=== PATIENT | female | born 1935 | race Caucasian/White ===

== ENCOUNTER 2019-09-18 17:52 | Emergency (ER) | payer MEDICARE, MEDICAID ==
[~2019-09-18] VITALS: Ht 160 cm; Wt 65.0 kg
[~2019-09-18 17:52] MED LIST: ACET-1 PO; ALBU8.5H8 INH; ASPI-611 PO; ATOR-2 PO; CHOL10002 PO; CLOP75TA15 PO; DEXL60CA3 PO; GABA600T13 PO; LEVO50TA PO; LIOT5TAB10 PO; LOSA25TA41 PO; LUBI8CAP PO; METF-436 PO; METO25TA6 PO; NITR0.4T SL; SERT25TA PO
[2019-09-18] MEDS ORDERED: HYDROcodone/acetaminophen 5mg/325mg tablet PO ONE (18:55)
[2019-09-18] MEDS ORDERED: ondansetron 4mg rapidly disintigrating tab PO ONE (18:55)
[2019-09-18 19:00] LABS: CLARITY,URINE CLEAR (Clear); COLOR,URINE YELLOW (Yellow); GLUCOSE, URINE NEGATIVE (Neg); KETONES,URINE NEGATIVE (Neg); LEUKOCYTE ESTERASE ,URINE NEGATIVE (Neg); NITRITES, URINE NEGATIVE (Neg); OCCULT BLOOD,URINE LARGE (Neg); PH,URINE 5.5 (4.8-8.0); PROTEIN,URINE NEGATIVE (Neg); UROBILINOGEN,URINE 0.2 E.U/dL (0.2-1.0)
[2019-09-18 19:06] LABS: UA COLLECTION TYPE CLN CATCH MIDSTREAM
[2019-09-18 19:07] LABS: BACTERIA,URINE FEW /HPF (Neg); SQUAMOUS EPITHELIAL CELL,UR FEW /LPF (FEW); WBC,URINE NONE SEEN /HPF (0-4)
[2019-09-18 19:49] LABS: BASOPHILS # (AUTO) 0.1 X10'3 (0-0.2); BASOPHILS % (AUTO) 1.1 % (0-1); EOSINOPHILS # (AUTO) 0.1 X10'3 (0-0.9); EOSINOPHILS % (AUTO) 1.3 % (0-6); HEMATOCRIT 39.7 % (35.0-45.0); HEMOGLOBIN 12.9 g/dl (12.0-16.0); LYMPHOCYTES # (AUTO) 1.3 X10'3 (1.1-4.8); LYMPHOCYTES % (AUTO) 19.9 % (21-51); MEAN CORPUSCULAR HGB CONC 32.6 g/dL (33.0-36.5); MEAN CORPUSCULAR VOLUME 92.1 FL (78-98); MEAN PLATELET VOLUME 9.7 FL (7.4-10.4); MONOCYTES # (AUTO) 0.4 X10'3 (0-0.9); MONOCYTES % (AUTO) 6.4 % (2-12); NEUTROPHILS # (AUTO) 4.8 X10'3 (1.8-7.7); NEUTROPHILS % (AUTO) 71.3 % (42-75); PLATELET COUNT 240 X10'3 (140-440); RED BLOOD COUNT 4.31 X10'6 (4.20-5.60); RED CELL DISTRIBUTION WIDTH 15.3 % (11.5-14.5); WHITE BLOOD COUNT 6.7 X10'3 (4.5-11.0)
[2019-09-18 20:05] LABS: ALANINE AMINOTRANSFERASE 20 U/L (12-78); ALBUMIN 3.6 G/DL (3.4-5.0); ALBUMIN/GLOBULIN RATIO 0.9 (1.1-1.5); ALKALINE PHOSPHATASE 95 IU/L (46-116); ANION GAP 7 (8-16); ASPARTATE AMINO TRANSFERASE 18 U/L (10-37); BLOOD UREA NITROGEN 15 MG/DL (7-18); BUN/CREATININE RATIO 16.9 (6.6-38.0); CALCIUM 9.2 MG/DL (8.5-10.1); CHLORIDE 106 MMOL/L (99-107); CREATININE 0.89 MG/DL (0.40-0.90); GLUCOSE 101 MG/DL (70-104); LIPASE 99 U/L (73-393); SODIUM 142 MMOL/L (135-145); TOTAL CARBON DIOXIDE 28.8 MMOL/L (24-32); TOTAL PROTEIN 7.5 G/DL (6.4-8.2); eGFR 61 ML/MIN
--- NOTE | 2019-09-18 20:08 | NUR ---
BETH NORIEGA CALL FOR [facility] OR UPDATE. [phone]
[2019-09-18] MEDS ORDERED: ketorolac trometh inj. 60 MG/2 ML VIAL IM ONE (21:10)
[2019-09-18 21:45] VITALS: BP 183/65
== END 2019-09-18 21:47 | disposition home or self-care (01) ==
LOC: ER 17:52
DX: R10.31 Right lower quadrant pain (principal); J44.9 Chronic obstructive pulmonary disease, unspecified; E11.9 Type 2 diabetes mellitus without complications; G89.29 Other chronic pain; Z90.49 Acquired absence of other specified parts of digestive tract; Z98.890 Other specified postprocedural states; Z88.8 Allergy status to other drugs, medicaments and biological substances; Z88.2 Allergy status to sulfonamides; Z79.82 Long term (current) use of aspirin; Z79.84 Long term (current) use of oral hypoglycemic drugs; Z79.899 Other long term (current) drug therapy
CPT/HCPCS: 36415; 74176; 80053; 81001; 83605; 83690; 85025; 96372; 99284; J1885

== ENCOUNTER 2021-11-16 09:56 | Day surgery (SDC) | payer MEDICARE, MEDICAID ==
[2021-11-08 14:06] LABS: BASOPHILS % (AUTO) 0.8 % (0-1); EOSINOPHILS # (AUTO) 0.1 X10'3 (0-0.9); EOSINOPHILS % (AUTO) 1.1 % (0-6); LYMPHOCYTES % (AUTO) 18.2 % (21-51); MEAN CORPUSCULAR HEMOGLOBIN 31.4 PG (27.0-31.0); MEAN CORPUSCULAR HGB CONC 33.7 g/dL (33.0-36.5); MEAN CORPUSCULAR VOLUME 93.1 FL (78-98); MEAN PLATELET VOLUME 9.4 FL (7.4-10.4); MONOCYTES # (AUTO) 0.4 X10'3 (0-0.9); MONOCYTES % (AUTO) 6.5 % (2-12); NEUTROPHILS # (AUTO) 4.2 X10'3 (1.8-7.7); NEUTROPHILS % (AUTO) 73.4 % (42-75); PRE OP HEMATOCRIT 41.1 % (35.0-45.0); PRE OP HEMOGLOBIN 13.9 g/dL (12.0-16.0); PRE OP PLATELET COUNT 185 X10'3 (140-440); RED BLOOD COUNT 4.41 X10'6 (4.20-5.60); RED CELL DISTRIBUTION WIDTH 14.6 % (11.5-14.5)
[2021-11-08 14:38] LABS: ALBUMIN 3.5 G/DL (3.4-5.0); ALKALINE PHOSPHATASE 99 IU/L (46-116); BLOOD UREA NITROGEN 24 MG/DL (7-18); BUN/CREATININE RATIO 27.6 (6.6-38.0); CALCIUM 8.9 MG/DL (8.5-10.1); CHLORIDE 108 MMOL/L (99-107); CREATININE 0.87 MG/DL (0.40-0.90); PRE OP ALT 27 U/L (30-65); PRE OP ANION GAP 10 (8-16); PRE OP AST 22 U/L (10-37); PRE OP BILIRUB, TOTAL 0.5 MG/DL (0.0-1.0); PRE OP GLUCOSE 102 MG/DL (70-104); PRE OP POTASSIUM 4.4 MMOL/L (3.4-5.1); PRE OP SODIUM 144 MMOL/L (135-145); TOTAL CARBON DIOXIDE 25.7 MMOL/L (24-32); TOTAL PROTEIN 6.9 G/DL (6.4-8.2); eGFR 62 ML/MIN
[~2021-11-16] VITALS: Ht 162.6 cm; Wt 70.0 kg
[2021-11-16] VITALS (9 sets, daily range): BP systolic 127–146; BP diastolic 57–82
[~2021-11-16 09:56] MED LIST changes: +ALBU8.5H17 INH; -ALBU8.5H8 INH; +DOCUMENT DATE & TIME OF BETA-BLOCKER PO ONE; +LOP25T PO; -METO25TA6 PO; +albuterol 2.5 MG/3 ML nebule NEB ONE; +ceFAZolin 1,000 MG in NS 50ML IVPB IV ONE; +famotidine 20mg tablet PO ONE; +ringers solution, lacted 1,000 ML IV SCH; +vancomycin 1,500 MG in NS 300ml IV soln IV ONE
[2021-11-16] MEDS ORDERED: ACET-2971 PO (10:47)
[2021-11-16] MEDS ORDERED: hydrALAZINE 20mg/ml inj. IV PRN (10:55)
[2021-11-16] MEDS ORDERED: ondansetron/PF 4mg/2ml inj IV PRN (10:55)
[2021-11-16] MEDS ORDERED: morphine 2 MG/ML inj. syringe IV PRN (10:55)
[2021-11-16] MEDS ORDERED: labetalol 20mg/4ml (5mg/ml) syringe IV PRN (10:55)
[2021-11-16] MEDS ORDERED: fentaNYL/PF 50MCG/1 ML 2ML syringe IV PRN ×2 (10:55)
[2021-11-16] MEDS ORDERED: ringers solution, lacted 1,000 ML IV SCH (10:55)
[2021-11-16] MEDS ORDERED: morphine 4 MG/ML inj SYRINge IV PRN (10:55)
[2021-11-16] MEDS ORDERED: BUPIVAcaine 0.5% inj/PF 30 ML ONE ×2 (12:32→12:38)
[2021-11-16] MEDS ORDERED: midazolam 1 mg/ML 2ml injection ONE (13:18)
[2021-11-16] MEDS ORDERED: fentaNYL/PF 50MCG/1 ML 2ML syringe ONE ×2 (13:18→14:06)
[2021-11-16] MEDS ORDERED: LIDOcaine 2% (20mg/ml) 5ml vial ONE (13:26)
[2021-11-16] MEDS ORDERED: propofol inj 20 ML IV ONE (13:26)
[2021-11-16] MEDS ORDERED: ondansetron/PF 4mg/2ml inj ONE (13:26)
[2021-11-16] MEDS ORDERED: ePHEDrine 50MG/ML INJ. ONE (13:33)
[2021-11-16] MEDS ORDERED: BUPIVAcaine 0.5% inj/PF 30 ml vial IJ ONE (13:47)
[2021-11-16] MEDS ORDERED: acetaminophen 1,000mg/100ml IV 100 ML IV ONE (13:58)
[2021-11-16] MEDS ORDERED: triamcinolone acetonide 40mg/ml inj ONE (14:01)
--- NOTE | 2021-11-16 14:41 | NUR ---
Received from OR via [facility], accompanied by Anesthesiologist Ekta and report given by Anesthesiolgist. VS WNL, 20G LR at 100cc/hr, bilateral knees wrapped with dressings CDI, bilateral distal extrem pulses palpable, no pain, mask to 10L and sats above 95%.
--- NOTE | 2021-11-16 16:01 | NUR ---
Pt discharged to vehicle by wheelchair with no incidences. IV DC'd all belongings returned to patient. She and friend verbalized understanding of all DC instructions. Dressings remain CDI. Pain meds at home per new script from .
== END 2021-11-16 16:01 | disposition home or self-care (01) ==
LOC: PAS 09:56
PROVIDERS: ATTEND Orthopaedic Surgery
DX: S83.232A Complex tear of medial meniscus, current injury, left knee, initial encounter (principal); S83.231A Complex tear of medial meniscus, current injury, right knee, initial encounter; S83.271A Complex tear of lateral meniscus, current injury, right knee, initial encounter; S83.282A Other tear of lateral meniscus, current injury, left knee, initial encounter; M17.0 Bilateral primary osteoarthritis of knee; M94.261 Chondromalacia, right knee; M94.262 Chondromalacia, left knee; F41.1 Generalized anxiety disorder; M19.011 Primary osteoarthritis, right shoulder; I10 Essential (primary) hypertension; E03.9 Hypothyroidism, unspecified; E78.5 Hyperlipidemia, unspecified; E66.8 Other obesity; Z68.25 Body mass index [BMI] 25.0-25.9, adult; M17.32 Unilateral post-traumatic osteoarthritis, left knee; M16.12 Unilateral primary osteoarthritis, left hip; E11.59 Type 2 diabetes mellitus with other circulatory complications; K21.9 Gastro-esophageal reflux disease without esophagitis; J44.9 Chronic obstructive pulmonary disease, unspecified; F17.210 Nicotine dependence, cigarettes, uncomplicated; Z79.899 Other long term (current) drug therapy; Z96.641 Presence of right artificial hip joint; Z88.8 Allergy status to other drugs, medicaments and biological substances; Z88.2 Allergy status to sulfonamides; Z20.822 Contact with and (suspected) exposure to COVID-19; X58.XXXA Exposure to other specified factors, initial encounter; Y93.89 Activity, other specified; Y92.89 Other specified places as the place of occurrence of the external cause; Y99.8 Other external cause status
CPT/HCPCS: 29873; 29879; 29880; 36415; 80053; 82948; 85025; J0131; J0690; J2250; J2405; J2704; J3010; J3301; J3370; J3490; J7040; J7120; S0020; U0003; U0005; Z7506; Z7508; Z7512; A4215; A4618; A6250; A6449; A7000

== ENCOUNTER 2022-06-25 16:31 | Emergency (ER) | payer MEDICARE, MEDICAID ==
[~2022-06-25] VITALS: Ht 157.5 cm; Wt 65.0 kg
[~2022-06-25 16:31] MED LIST changes: -ACET-1 PO; +ACET-2971 PO; -CLOP75TA15 PO; -DEXL60CA3 PO; -DOCUMENT DATE & TIME OF BETA-BLOCKER PO ONE; -GABA600T13 PO; -LIOT5TAB10 PO; -LUBI8CAP PO; -METF-436 PO; -SERT25TA PO; -albuterol 2.5 MG/3 ML nebule NEB ONE; -ceFAZolin 1,000 MG in NS 50ML IVPB IV ONE; -famotidine 20mg tablet PO ONE; -ringers solution, lacted 1,000 ML IV SCH; -vancomycin 1,500 MG in NS 300ml IV soln IV ONE
[2022-06-25] MEDS ORDERED: LIDO700A32 TOP (17:12)
[2022-06-25] MEDS ORDERED: LIDOcaine 5% patch TP STA (17:12)
[2022-06-25 17:37] VITALS: BP 128/78
--- NOTE | 2022-06-27 13:03 | NUR ---
TRAMODOL 50MG 1 PO TID PRN PAIN #12 NO REFILL CALLED TO [facility] IN [place] PER ISH RAMIREZ. MSG LEFT ON MACHINE.
== END 2022-06-25 17:41 | disposition home or self-care (01) ==
LOC: ER 16:31
DX: R07.81 Pleurodynia (principal); R06.02 Shortness of breath; E78.00 Pure hypercholesterolemia, unspecified; I10 Essential (primary) hypertension; J44.9 Chronic obstructive pulmonary disease, unspecified; E11.9 Type 2 diabetes mellitus without complications; E03.9 Hypothyroidism, unspecified; G89.29 Other chronic pain; F32.A Depression, unspecified; Z90.89 Acquired absence of other organs; Z90.49 Acquired absence of other specified parts of digestive tract; Z98.890 Other specified postprocedural states; Z88.1 Allergy status to other antibiotic agents; Z88.2 Allergy status to sulfonamides; Z88.6 Allergy status to analgesic agent; Z79.82 Long term (current) use of aspirin; Z88.8 Allergy status to other drugs, medicaments and biological substances; Z79.899 Other long term (current) drug therapy
CPT/HCPCS: 71101; 99284

== ENCOUNTER 2022-08-08 01:15 | Emergency (ER) | payer MEDICARE, MEDICAID ==
[~2022-08-08] VITALS: Ht 160 cm; Wt 69.5 kg
[~2022-08-08 01:15] MED LIST changes: +LIDO700A32 TOP
[2022-08-08 11:15] VITALS: BP 157/86
[2022-08-08] MEDS ORDERED: acetaminophen 325mg tablet PO ONE (11:15)
== END 2022-08-08 11:36 | disposition home or self-care (01) ==
LOC: ER 01:16
DX: M54.50 Low back pain, unspecified (principal); E78.00 Pure hypercholesterolemia, unspecified; I10 Essential (primary) hypertension; H44.9 Unspecified disorder of globe; E11.9 Type 2 diabetes mellitus without complications; G89.29 Other chronic pain; Z88.2 Allergy status to sulfonamides; Z88.5 Allergy status to narcotic agent; Z88.8 Allergy status to other drugs, medicaments and biological substances; Z98.890 Other specified postprocedural states
CPT/HCPCS: 72220; 99284

== ENCOUNTER 2023-03-11 16:30 | Emergency (ER) | payer MEDICARE, MEDICAID ==
[~2023-03-11] VITALS: Ht 157.5 cm; Wt 64.1 kg
[~2023-03-11 16:30] MED LIST changes: -ACET-2971 PO; -ALBU8.5H17 INH; -ATOR-2 PO; +ATOR40TA PO; -CHOL10002 PO; +CLOP75TA34 PO; +LEVO100T PO; -LEVO50TA PO; -LIDO700A32 TOP; -LOP25T PO; -LOSA25TA41 PO; +LOSA25TA96 PO; +METO25TA6 PO; -NITR0.4T SL
--- NOTE | 2023-03-12 01:17 | NUR ---
[facility] will not answer their phone and cannot leave a message. Xiomy, was called per pt request and she will be here shortly.
[2023-03-12 01:19] VITALS: BP 162/80
== END 2023-03-12 06:43 | disposition home or self-care (01) ==
LOC: ER 16:32
DX: M79.605 Pain in left leg (principal); E78.00 Pure hypercholesterolemia, unspecified; I10 Essential (primary) hypertension; J44.9 Chronic obstructive pulmonary disease, unspecified; E11.9 Type 2 diabetes mellitus without complications; E03.9 Hypothyroidism, unspecified; Z88.8 Allergy status to other drugs, medicaments and biological substances; Z88.2 Allergy status to sulfonamides; Z90.49 Acquired absence of other specified parts of digestive tract
CPT/HCPCS: 93926; 93971; 99285

== ENCOUNTER 2023-10-30 01:23 | Observation (INO) | payer MEDICARE, MEDICAID ==
[~2023-10-30] VITALS: Ht 160 cm; Wt 63.6 kg
[~2023-10-30 01:23] MED LIST changes: -ASPI-611 PO; +LOSA-415 PO; -LOSA25TA96 PO
[2023-10-30 01:56] LABS: BASOPHILS # (AUTO) 0.1 X10'3 (0-0.2); BASOPHILS % (AUTO) 0.8 % (0-1); EOSINOPHILS # (AUTO) 0.1 X10'3 (0-0.9); EOSINOPHILS % (AUTO) 1.6 % (0-6); HEMATOCRIT 29.6 % (35.0-45.0); LYMPHOCYTES # (AUTO) 1.5 X10'3 (1.1-4.8); LYMPHOCYTES % (AUTO) 19.8 % (21-51); MEAN CORPUSCULAR HEMOGLOBIN 22.6 PG (27.0-31.0); MEAN CORPUSCULAR HGB CONC 30.6 g/dL (33.0-36.5); MEAN CORPUSCULAR VOLUME 74.1 FL (78-98); MEAN PLATELET VOLUME 10.3 FL (7.4-10.4); MONOCYTES # (AUTO) 0.5 X10'3 (0-0.9); MONOCYTES % (AUTO) 6.6 % (2-12); NEUTROPHILS # (AUTO) 5.5 X10'3 (1.8-7.7); NEUTROPHILS % (AUTO) 71.2 % (42-75); PLATELET COUNT 270 X10'3 (140-440); RED CELL DISTRIBUTION WIDTH 18.7 % (11.5-14.5); WHITE BLOOD COUNT 7.7 X10'3 (4.5-11.0)
[2023-10-30 01:59] LABS: ALANINE AMINOTRANSFERASE 27 U/L (12-78); ALBUMIN 3.3 G/DL (3.4-5.0); ALBUMIN/GLOBULIN RATIO 0.8 (1.1-1.5); ALKALINE PHOSPHATASE 74 IU/L (46-116); ANION GAP 11 (8-16); APTT 27 SECONDS (22-32); ASPARTATE AMINO TRANSFERASE 20 U/L (10-37); BILIRUBIN,TOTAL 0.5 MG/DL (0.1-1.0); BLOOD UREA NITROGEN 40 MG/DL (7-18); BUN/CREATININE RATIO 38.8 (10.0-20.0); CALCIUM 9.5 MG/DL (8.5-10.1); CHLORIDE 102 MMOL/L (99-107); CREATININE 1.03 MG/DL (0.40-0.90); GLUCOSE 127 MG/DL (70-104); POTASSIUM 4.1 MMOL/L (3.5-5.1); PROTHROMBIN TIME 10.9 SECONDS (9.0-12.0); SODIUM 138 MMOL/L (135-145); TOTAL CARBON DIOXIDE 24.9 MMOL/L (24-32); TOTAL PROTEIN 7.5 G/DL (6.4-8.2); eCRCL 32 ML/MIN; eGFR 51 ML/MIN
[2023-10-30] MEDS ORDERED: normal saline 1000ml 1,000 ML IV ONE (02:05)
[2023-10-30] MEDS ORDERED: acetaminophen 325mg tablet PO ONE (02:15)
[2023-10-30] MEDS ORDERED: magnesium 2GM in 50ml NS 50 ML IV ONE (02:40)
[2023-10-30 04:36] LABS: ANISOCYTOSIS 2+; MICROCYTOSIS 1+; PLATELET ESTIMATE NORMAL; SCHISTOCYTES FEW
[2023-10-30 04:37] LABS: ELLIPTOCYTES FEW; HYPOCHROMASIA 1+
[2023-10-30] MEDS ORDERED: PERFLUTREN PROTEIN-A MICROSPHR (Optison) 0.22 MG/ML 3ML VIAL IV ONE (06:15)
[2023-10-30] MEDS ORDERED: normal saline 1000ml 1,000 ML IV SCH (06:15)
[2023-10-30] MEDS ORDERED: magnesium Cl slow-release 64mg tablet PO PRN (06:15)
[2023-10-30] MEDS ORDERED: potassium Cl 20 mEq SR tablet PO PRN ×2 (06:15)
[2023-10-30] MEDS ORDERED: acetaminophen 325mg tablet PO PRN (06:15)
[2023-10-30] MEDS ORDERED: potassium Cl 40MEQ/1/2NS 520ml 520 ML IV PRN (06:15)
[2023-10-30] MEDS ORDERED: magnesium 2GM in 50ml NS 50 ML IV PRN (06:15)
[2023-10-30] MEDS ORDERED: ondansetron/PF 4mg/2ml inj IV PRN (06:15)
[2023-10-30] MEDS ORDERED: magnesium 4gm in 100ml NS 100 ML IV PRN (06:15)
[2023-10-30] MEDS ORDERED: K and/or MAG REPLACEMENT MC SCH (08:00)
[2023-10-30 08:41] LABS: PRO BRAIN NATRIURETIC PEPTIDE 368 PG/ML (0-450)
[2023-10-30] MEDS ORDERED: TRAM50TA2 PO (11:11)
[2023-10-30 12:15] VITALS: BP 142/57; PULSE 71; RESP 18; TEMP 97.7; O2SAT 96
== END 2023-10-30 12:15 | disposition home or self-care (01) ==
LOC: ER 01:23 → ED HOLD 06:20
PROVIDERS: ADMIT Internal Medicine; ATTEND Internal Medicine
DX: R55 Syncope and collapse (principal); I10 Essential (primary) hypertension; E03.9 Hypothyroidism, unspecified; E78.5 Hyperlipidemia, unspecified; J44.1 Chronic obstructive pulmonary disease with (acute) exacerbation; G89.29 Other chronic pain; M54.50 Low back pain, unspecified; L40.9 Psoriasis, unspecified; F32.A Depression, unspecified; R79.89 Other specified abnormal findings of blood chemistry; D64.9 Anemia, unspecified; E11.9 Type 2 diabetes mellitus without complications; E78.00 Pure hypercholesterolemia, unspecified; N17.9 Acute kidney failure, unspecified; W18.30XA Fall on same level, unspecified, initial encounter; Y93.89 Activity, other specified; Y92.89 Other specified places as the place of occurrence of the external cause; Y99.8 Other external cause status
CPT/HCPCS: 36415; 70450; 72125; 80053; 83735; 83880; 84484; 85008; 85025; 85610; 85730; 93005; 96361; 96365; 96366; 99285; G0378; J3475; J7030

== ENCOUNTER 2024-01-07 00:39 | Outpatient (CLI) | payer MEDICARE, MEDICAID ==
[2024-01-07] VITALS (21 sets, daily range): BP systolic 106–140; BP diastolic 38–90; PULSE 79–103
== END 2024-01-07 23:59 | disposition home or self-care (01) ==
LOC: CARD DIAG 00:39
PROVIDERS: ATTEND Internal Medicine Interventional Cardiology
DX: R55 Syncope and collapse (principal)
CPT/HCPCS: 93660

== ENCOUNTER 2024-09-25 14:59 | Outpatient (CLI) | payer MEDICARE, MEDICAID ==
[~2024-09-25 14:59] MED LIST changes: +CHOL200080 PO; -CLOP75TA34 PO; +FERR324T4 PO; +FURO20TA4 PO; +IPRA3AMP9 NEB; -METO25TA6 PO; +NEBU-245; +PANT-47 PO; +RIVA2.5T PO; +SERT25TA PO
== END 2024-09-25 23:59 | disposition home or self-care (01) ==
LOC: RAD 14:59
PROVIDERS: ATTEND Family Medicine
DX: M79.89 Other specified soft tissue disorders (principal); R60.9 Edema, unspecified
CPT/HCPCS: 73610; 73630

== ENCOUNTER 2025-02-14 15:19 | Emergency (ER) | payer MEDICARE, MEDICAID ==
[~2025-02-14] VITALS: Ht 160 cm; Wt 57.3 kg
--- NOTE | 2025-02-14 15:38 | Physician Documentation ---
History of Present Illness ~ Chief Complaint: Mechanical Fall Stated Complaint: FALL Time Seen by MD: 15:31 Primary Medical Doctor: Yolanda Hurt 89-year-old female who presents by ambulance after having a ground level fall, denies loss of consciousness arrives to the ER with a cervical restraint collar in place, history of chronic neck pain with a plate in her neck also having chronic low back pain which is not new. Day of Fall: February 14, 2025 Occurred: just prior to arrival Injury/Pain Location: head, neck Context: lost balance Loss Of Consciousness: no loss of consciousness Associated Symptoms: denies symptoms Pain Severity: moderate Modifying Factors: improves with: immobilization Tetanus within 5 Years?: No Prehospital Care: c-collar Medication Reconciliation Allergies: Coded Allergies: Metronidazole HCl (Verified Allergy, Severe, RASH, HALLUCINATIONS, 08/18/24) "SKIN ON FIRE" Sulfa (Sulfonamide Antibiotics) (Verified Adverse Reaction, Mild, N/V, 08/18/24) pregabalin (Verified Adverse Reaction, Unknown, ALOC, 08/18/24) Scheduled Atorvastatin Calcium* (Lipitor*), 1 TAB PO DAILY, (Reported) Cholecalciferol (Vitamin D3) (Vitamin D3), 1 CAP PO DAILY, (Reported) Ferrous Sulfate (Ferrous Sulfate), 1 TAB PO DAILY Furosemide (Furosemide), 1 TAB PO DAILY, (Reported) Ipratropium/Albuterol Sulfate (IPRAT-ALBUT 0.5-3(2.5) MG/3 ML nebule), 3 ML NEB Q4HRT Levothyroxine Sodium (Synthroid), 1 TAB PO DAILY, (Reported) Losartan Potassium* (Cozaar*), 1 TAB PO DAILY, (Reported) Pantoprazole Sodium (PROTONIX tablet), 40 MG PO BID Rivaroxaban (Xarelto), 1 TAB PO BID, (Reported) Sertraline Hcl* (Zoloft*), 4 TAB PO DAILY Durable Medical Equipment Nebulizer and Compressor (Compressor Nebulizer System), BOXS, (DME) Past Medical History Past Medical History: Coronary Artery Disease, High Cholesterol, Hypertension, COPD, Diabetes, Hypothyroidism, Chronic Back Pain, Psoriasis, Depression Past Surgical History: appendectomy, cholecystectomy, orthopedic surgeries Patient History: Patient reports no known family medical history. Alcohol Use: None Drug Use: none Lives with: Family Lives In: Home Occupation: retired Review of Systems All Other Systems at this time: Reviewed and Negative Constitutional: Reports: no symptoms reported, see HPI Neurological: Reports: see HPI, headache; Denies: dizziness, tingling, left sided numbness, right sided numbness, left sided weakness Musculoskeletal: Reports: pain, back pain, neck pain Integumentary: Reports: no symptoms reported Physical Exam Vital Signs: RN Vital Signs have been reviewed: Yes Pulse Oximetry Reflects: adequate oxygenation General Appearance: alert, no apparent distress Head: no evidence of injury; No: Alfaro's Sign, contusions Face: normal Neck: paraspinous muscle tender Progress Results/Orders Results/Orders Orders - JOSE FERRIS DO Ct Cervical Spine (02/14/25 15:20) Ct Head (02/14/25 ) Completed Orders - JOSE FERRIS DO Ct Cervical Spine (02/14/25 15:20) Ct Head (02/14/25 ) Vital Signs 02/14/25 02/14/25 15:31 16:00 Pulse 82 Resp 17 15 B/P (MAP) 118/72 Pulse Ox 96 O2 Flow Rate 0 EKG/XRAY/CT/US/VASC/MRI CT : Impression [facility] [address] [address] CAT SCAN Patient: NIMCO DELGADO Medical Record: [id number] : 1935, Age: 89 Sex: Female Location: ER Patient Status: REG ER Service Date/Time: 02/14/25 Ordering Physician: JOSE FERRIS DO Exam: CT HEAD EXAM: CT CT HEAD HISTORY: FALL ON THINNERS COMPARISON: CT CT HEAD on DOS: 08/18/24, CT CT HEAD on DOS: 10/30/23 TECHNIQUE: Noncontrast axial CT images of the head were performed. Sagittal and coronal reformatted images were obtained. This CT exam was performed using 1 or more of the following dose reduction techniques: Automated exposure control, adjustment of the mA and/or kv according to patient size, or the use of iterative reconstruction techniques. Radiation Dose: CTDI volume is 48.26 mGy. Dose-length product is 883.59 mGy*cm FINDINGS: No intracranial hemorrhage, mass, midline shift, hydrocephalus, or evidence of acute large vessel infarct. There is [id number] decreased attenuation in the periventricular white matter. 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 Cavum septum pellucidum and cavum septum vergae are incidentally noted. There are postoperative changes of bilateral cataract extraction surgery. The paranasal sinuses are essentially clear. There is sclerosis and fluid of the right mastoid air cells. There are postoperative changes of partial left mastoidectomy. No cranial fracture or scalp edema. The patient is edentulous. IMPRESSION: 1. Chronic ischemic changes without evidence of acute intracranial process. 2. Postoperative changes of partial left mastoidectomy and bilateral cataract extraction surgery. 3. 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 Electronically Signed by:NABIL HERNÁNDEZ MD Date & Time: 02/14/251556 Dictated by: NABIL HERNÁNDEZ MD Dictation date and time: 02/14/251556 Primary Care Provider: NO PRIMARY CARE PROVIDER cc: JOSE FERRIS DO [address] [address] CAT SCAN Patient: NIMCO DELGADO Medical Record: [id number] [facility] : 1935, Age: 89 Sex: Female Location: ER Patient Status: REG ER Service Date/Time: 02/14/251519 Ordering Physician: JOSE FERRIS DO Exam: CT CERVICAL SPINE EXAM: CT CT CERVICAL SPINE INDICATION: FALL ON THINNERS EXAM DATE: 02/14/2025 03:25 PM COMPARISON: CT CT CERVICAL SPINE on DOS: 08/18/24, CT CT CERVICAL SPINE on DOS: 10/30/23 TECHNIQUE: Multiple axial CT images of the cervical spine were obtained using bone algorithm. Axial and coronal reformatting was done. Bone and soft tissue windows were reviewed. Radiation Dose Information: CT Dose: CTDI volume is 13.11 mGy. Dose-length product is 333.38 mGy*cm Findings: There is no evidence of an acute fracture or spondylolisthesis. The vertebral body heights are well-maintained. The craniocervical junction and dens are intact. Anterior spinal fusion C5-C6 No spinal canal stenosis. There is flattening of the cervical lordosis. The thyroid gland is unremarkable. The lung apices demonstrate no acute abnormality. The paraspinal and neck soft tissues appear within normal limits. C2-3: Normal C3-4: Normal C4-5: Normal C5-6: Normal C6-7: Normal C7-T1: Normal Impression: 1. No evidence of an acute fracture. 2. Straightening of the cervical lordosis which may be positional versus muscle spasm. Electronically Signed by:SKYE RYAN DO Date & Time: 02/14/251613 Dictated by: SKYE RYAN DO Dictation date and time: 02/14/251613 Primary Care Provider: NO PRIMARY CARE PROVIDER cc: JOSE FERRIS DO ~ Heart Score: Heart Score Response (Comments) Value History N/A 0 EKG N/A 0 Age N/A 0 Risk Factors N/A 0 Troponin N/A 0 Total 0 Medical Decision Making Differential Dx:Considerations: Include: Closed head injury, Cardiac injury, Fracture(s), Intraabdominal injury, Pulmonary contusion, Spine injury, Contusion(s), Hematoma(s), Laceration(s) Departure Disposition: HOME / SELF CARE / HOMELESS Impression: Primary Impression: Fall Additional Impression: Head contusion Condition: Stable Discharge Instructions: Fall Prevention in the Home, Adult, [id number], Contusion Referrals: NO PRIMARY CARE PROVIDER (PCP) Education Educated: Patient Educated regarding: diagnosis, treatment Signature Scribe Signature: None Attestation: Dictated by myself JOSE FERRIS DO February 14, 2025 15:38
--- NOTE | 2025-02-14 15:59 | RADIOLOGY REPORT ---
EXAM: CT CT HEAD HISTORY: FALL ON THINNERS COMPARISON: CT CT HEAD on DOS: 08/18/24, CT CT HEAD on DOS: 10/30/23 TECHNIQUE: Noncontrast axial CT images of the head were performed. Sagittal and coronal reformatted i mages were obtained. This CT exam was performed using 1 or more of the following dose reduction techn iques: Automated exposure control, adjustment of the mA and/or kv according to patient size, or the u se of iterative reconstruction techniques. Radiation Dose: CTDI volume is 48.26 mGy. Dose-length product is 883.59 mGy*cm FINDINGS: No intracranial hemorrhage, mass, midline shift, hydrocephalus, or evidence of acute large vessel inf arct. There is [id number] decreased attenuation in the periventricular white matter. 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 Cavum septum pellucidum and cavum septum vergae are incidentally noted. There are postoperative changes of bilateral cataract e xtraction surgery. The paranasal sinuses are essentially clear. There is sclerosis and fluid of the r ight mastoid air cells. There are postoperative changes of partial left mastoidectomy. No cranial fr acture or scalp edema. The patient is edentulous. IMPRESSION: 1. Chronic ischemic changes without evidence of acute intracranial process. 2. Postoperative changes of partial left mastoidectomy and bilateral cataract extraction surgery. 3. 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
--- NOTE | 2025-02-14 16:17 | RADIOLOGY REPORT ---
EXAM: CT CT CERVICAL SPINE INDICATION: FALL ON THINNERS EXAM DATE: 02/14/2025 03:25 PM COMPARISON: CT CT CERVICAL SPINE on DOS: 08/18/24, CT CT CERVICAL SPINE on DOS: 10/30/23 TECHNIQUE: Multiple axial CT images of the cervical spine were obtained using bone algorithm. Axial a nd coronal reformatting was done. Bone and soft tissue windows were reviewed. Radiation Dose Information: CT Dose: CTDI volume is 13.11 mGy. Dose-length product is 333.38 mGy*cm Findings: There is no evidence of an acute fracture or spondylolisthesis. The vertebral body heights are well-m aintained. The craniocervical junction and dens are intact. Anterior spinal fusion C5-C6 No spinal canal stenosis. There is flattening of the cervical lordosis. The thyroid gland is unremarkable. The lung apices demonstrate no acute abnormality. The paraspinal a nd neck soft tissues appear within normal limits. C2-3: Normal C3-4: Normal C4-5: Normal C5-6: Normal C6-7: Normal C7-T1: Normal Impression: 1. No evidence of an acute fracture. 2. Straightening of the cervical lordosis which may be positional versus muscle spasm.
[2025-02-14 16:54] VITALS: BP 95/65; PULSE 76; RESP 12; TEMP 97.8; O2SAT 99
== END 2025-02-14 17:39 | disposition home or self-care (01) ==
LOC: ER 15:19
DX: S00.93XA Contusion of unspecified part of head, initial encounter (principal); M54.2 Cervicalgia; R51.9 Headache, unspecified; E11.9 Type 2 diabetes mellitus without complications; E78.00 Pure hypercholesterolemia, unspecified; I10 Essential (primary) hypertension; F32.A Depression, unspecified; I25.10 Atherosclerotic heart disease of native coronary artery without angina pectoris; J44.9 Chronic obstructive pulmonary disease, unspecified; Z88.2 Allergy status to sulfonamides; Z88.8 Allergy status to other drugs, medicaments and biological substances; Z90.49 Acquired absence of other specified parts of digestive tract; W19.XXXA Unspecified fall, initial encounter; Y93.89 Activity, other specified; Y92.89 Other specified places as the place of occurrence of the external cause; Y99.8 Other external cause status
CPT/HCPCS: 70450; 72125; 99284